=== PATIENT | female | born 1965 | race Caucasian/White ===

== ENCOUNTER → 2017-01-28 | Outpatient (CLI) | payer OTHER ==
[~2017-01-28] MED LIST: PRILOSEC 20 MG20 MG PO; ZOLOFT100 MG
== END ==
LOC: RAD 04:25
DX: Z12.31 Encounter for screening mammogram for malignant neoplasm of breast (principal)

== ENCOUNTER → 2018-05-12 | Outpatient (CLI) | payer OTHER | LOC: RAD 02:36 | DX: Z12.31 Encounter for screening mammogram for malignant neoplasm of breast (principal); Z87.891 Personal history of nicotine dependence ==

== ENCOUNTER 2018-09-30 11:37 | Emergency (ER) | payer OTHER ==
[~2018-09-30] VITALS: Ht 167.6 cm; Wt 81.7 kg
--- NOTE | ~2018-09-30 | EKG ---
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: FERNANDOPedro : 1965 Requested By: Stephany Pillai Order Number: [id number] MD: Vishal Flores Measurements Intervals [place] Rate: 71 P: 36 HI: 164 QRS: 6 QRSD: 111 T: 30 QT: 398 QTc: 433 Interpretive Statements Sinus rhythm Normal tracing Compared to ECG 09/30/2018 11:45:46 No significant changes Electronically Signed On 10-01-2018 10:55:43 MEDICAL OFFICE REP by Vishal Flores [email or web address] <ELECTRONICALLY SIGNED> By: Vishal Flores MD, [facility] 10/01/18 1055 1331 1331 Vishal Flores MD, FACC /EPI
--- NOTE | ~2018-09-30 | EKG ---
[address] [place] [address] ELECTROCARDIOGRAM REPORT Name: ELIF EDMONDS Room #: [facility].R.#: [id number] Admission: Attend Phys: Discharge: Date of : 65 Report #: [id number] THIS REPORT FOR: //name// [facility] ED Test Date: 2018-09-30 Test Time: 11:45:46 Pat Name: ELIF EDMONDS Department: Room: Gender: F Rfid Analyst: TEENA : 1965 Requested By: Stephany Pillai Order Number: [id number] MD: Otoniel Jonas Measurements Intervals [place] Rate: 85 P: 28 NE: 169 QRS: 12 QRSD: 114 T: 31 QT: 373 QTc: 444 Interpretive Statements Sinus rhythm Borderline intraventricular conduction delay Compared to ECG 06/13/2013 11:59:33 Ventricular premature complex(es) no longer present intraventricular conduction delay slightly more prominent Electronically Signed On 09-30-2018 12:14:28 DIRECTOR RISK by Otoniel Jonas [email or web address] <ELECTRONICALLY SIGNED> By: Otoniel Jonas MD 09/30/18 1214 1145 [facility] Otoniel Jonas MD /WES
[2018-09-30 12:12] LABS: ABSOLUTE NEUTROPHILS 3.3 thou/uL (1.4-8.2); BASOPHILS 0.4 % (0.0-2.0); EOSINOPHILS 2.1 % (0.0-3.0); HEMATOCRIT 40.6 % (37.0-47.0); LYMPHOCYTES 37.8 % (24.0-44.0); MCH 29.9 pg (26.0-34.0); MCHC 34.5 g/dL (28.0-37.0); MCV 86.8 fL (80.0-100.0); MONOCYTES 6.3 % (1.0-8.0); PLATELET COUNT 208 thou/uL (150-400); POLYS 53.4 % (36.0-66.0); RBC 4.68 mil/uL (4.20-5.00); RDW 12.7 % (10.5-14.5); WBC 6.2 thou/uL (4.0-11.0)
[2018-09-30 12:23] LABS: ANION GAP 4 mmol/L (7-16); BUN 18 mg/dL (7-18); CALCIUM 9.6 mg/dL (8.5-10.1); CHLORIDE 105 mmol/L (98-107); CO2 28 mmol/L (21-32); CREATININE 0.8 mg/dL (0.6-1.0); GLUCOSE 81 mg/dL (74-106); POTASSIUM 3.7 mmol/L (3.5-5.1); SODIUM 137 mmol/L (136-145)
[2018-09-30 12:29] LABS: URINE BILIRUBIN NEGATIVE (Negative); URINE BLOOD 1+ (Negative); URINE CLARITY CLEAR; URINE COLOR YELLOW; URINE GLUCOSE-RANDOM* NEGATIVE (Negative); URINE KETONES NEGATIVE (Negative); URINE LEUKOCYTES-REFLEX NEGATIVE (Negative); URINE NITRITE-REFLEX NEGATIVE (Negative); URINE PROTEIN (DIPSTICK) NEGATIVE (Negative); URINE SPECIFIC GRAVITY 1.025 (1.005-1.035); URINE UROBILINOGEN 0.2 E.U./dl (0.2-1.0)
[2018-09-30 12:29] LABS: ALBUMIN 4.1 g/dL (3.4-5.0); LIPASE 115 U/L (73-393); SGOT 17 U/L (15-37); SGPT 16 U/L (30-65); TOTAL BILIRUBIN 0.3 mg/dL (<0.1-1.0); TOTAL PROTEIN 7.5 g/dL (6.4-8.2); TROPONIN-I <0.06 ng/mL (<0.06)
[2018-09-30 12:37] LABS: SQUAMOUS >10 Many /LPF (0-3)
[2018-09-30 12:38] LABS: BACTERIA-REFLEX 1-9 Few /HPF (None Seen); CASTS None Seen /LPF (None Seen); CRYSTALS None Seen /LPF (None Seen); MUCUS 4-6 Moderate strn/LPF (None Seen); URINE RBC 3-10 Few /HPF (0-2); URINE WBC-REFLEX 0-5 Rare /HPF (0-5)
[2018-09-30 14:10] VITALS: BP 113/68
[2018-09-30] MEDS ORDERED: PRILOSEC 20 MG20 MG PO (14:10)
== END 2018-09-30 14:29 | disposition home or self-care (01) ==
LOC: ER 11:37
PROVIDERS: Nurse Practitioner Family
DX: R07.89 Other chest pain (principal); F17.210 Nicotine dependence, cigarettes, uncomplicated; F41.9 Anxiety disorder, unspecified; Z88.2 Allergy status to sulfonamides